=== PATIENT | female | born 1980 | race Caucasian/White ===

== ENCOUNTER 2024-06-04 14:43 | Outpatient (CLI) | payer OTHER, SELFPAY ==
--- NOTE | ~2024-06-04 | XR_ITS ---
XR finger 5th RT min 2V Ordering provider: Melody Dickerson MD History: . S62.636A - Displaced fracture of distal phalanx of right ... . Comparison: June 04, 2024 FINDINGS: BONES: Healing fracture of the distal phalanx of the little finger. JOINT SPACES: Normal. SOFT TISSUES: Normal. IMPRESSION: Fracture at the base of the distal phalanx unchanged from previous examination. Reviewed, dictated and finalized at location A.
--- NOTE | ~2024-06-04 | XR_ITS ---
XR hand RT min 3V Ordering provider: Melody Dickerson MD History: . S62.636A - Displaced fracture of distal phalanx of right ... . Comparison: None. FINDINGS: BONES: Avulsion Fracture at the base of the distal phalanx dorsally JOINT SPACES: Normal. SOFT TISSUES: Soft tissue swelling over the distal interphalangeal joint of the little finger. IMPRESSION: Undisplaced fracture at the base of the distal phalanx of the little finger dorsally. Reviewed, dictated and finalized at location A. IMPRESSION: Undisplaced fracture at the base of the distal phalanx of the little finger preet bowser.
--- OUTSIDE RECORDS SUMMARY | 2024-06-04 16:41 | XMS_ITS | Clinical Summary ---
Author Organization [facility] Address [address], [facility] [address] [place] [address] Phone Care Team Providers Care Envelope Stuffer Name Role Phone Stveen Wilson MD Primary Care Provider + Allergies Active Allergy Reactions Criticality Noted Date Comments Erythromycin Rash 04/07/2016 Medications No known medications Active Problems Problem Noted Date Diagnosed Date Thrombophilia 04/07/2016 Family History Medical History Relation Name Comments No Known Problems Brother Hypertension Father Heart Attack Maternal Grandfather Stroke Maternal Grandmother No Known Problems Mother Cancer Paternal Grandfather Rectal Aneurysm Paternal Grandmother Diabetes Paternal Grandmother Relation Name Status Comments Brother Alive Father Alive Maternal Grandfather Maternal Grandmother Mother Alive Paternal Grandfather Alive Paternal Grandmother Social History Tobacco Use Types Packs/Day Years Used Date Smoking Tobacco: Former Cigarettes 0.5 12 0 03/17/2003 - 03/17/2014 Alcohol Use Standard Drinks/Week Comments Yes 4 (1 standard drink = 0.6 oz pur e alcohol) Comments Unknown Sex and Gender Information Value Date Recorded Sex Assigned at Not on file Legal Sex Female 2:21 PM ANIMAL STUNNER Gender Identity Not on file Sexual Orientation Not on file Last Filed Vital Signs Vital Sign Reading Time Taken Comments Blood Pressure 118/78 04/21/2016 3:55 PM ANIMAL STUNNER Pulse 57 04/21/2016 3:55 PM ANIMAL STUNNER Temperature 37.3 C (99.1 F) 04/21/2016 3:55 PM ANIMAL STUNNER Respiratory Rate - - Oxygen Saturation 98% 04/21/2016 3:55 PM ANIMAL STUNNER Inhaled Oxygen Concentration - - Weight 67.1 kg (148 lb) 04/21/2016 3:55 PM ANIMAL STUNNER Height 170.2 cm (5' 7 ) 04/21/2016 3:55 PM ANIMAL STUNNER Body Mass Index 23.18 04/21/2016 3:55 PM ANIMAL STUNNER Plan of Treatment Health Maintenance Due Date Last Done Comments Hepatitis C Virus (HCV) Screening 1982 TdaP Immunization 1982 Hepatitis B Immunization (1 of 3 - 19+ 3-dose series) 2001 Pap Smear 06/23/2003 Cervical Cancer Screening (CCS) 2012 HPV/Cotest 2012 Discussion re Starting/Frequ ency of Mammograms 2022 Influenza Immunization (#1) 2023 SARS-COV-2 Immunization ( season) 2023 Respiratory Syncytial Virus (RSV) Immunization (Adult) (1 - 1-dose 75+ series) 2057 Meningococcal Immunization (ACWY) Aged Out No longer eligible based on patient's age to complete this topic Pneumococcal Immunization Combined Aged Out No longer eligible based on patient's age to complete this topic Rotavirus Immunization Aged Out No lo nger eligible based on patient's age to complete this topic Insurance Care Teams Envelope Stuffer Relationship Specialty Start Date End Date Steven Wilson MD [address] [facility] [address] [place] [address] PCP - General Family Medicine 03/08/16
--- OUTSIDE RECORDS SUMMARY | 2024-06-04 16:41 | XMS_ITS | Clinical Summary ---
Author Organization [facility] Address [facility] [place] [address] Care Team Providers Care Manager Loss Prevention Name Role Phone Love Figueroa [facility] Primary Care Provider + Allergies Active Allergy Reactions Criticality Noted Date Comments Erythromycin Rash Medium 04/07/2016 Penicillins Hives,Rash Low 10/12/2006 Azithromycin Hives,Rash Low 05/31/2005 Medications IUD'S IU Active multi vitamin/mineral s (THERA-M ENHANCED) tablet Take 1 tablet by mouth daily. Active spironolactone (ALDACTONE) 100 MG tablet Take 1 tablet (100 mg total) by mouth daily. 05/14/2022 Active minoxidil (LONITEN) 2.5 MG tablet Take 0.625 mg by mouth daily. 10/20/2023 Active acyclovir (ZOVIRAX) 400 MG tablet Take 1 tablet (400 mg total) by mouth 2 (two) times daily. 01/17/2024 Active sulfamethoxazol e-trimethoprim (BACTRIM DS) 800-160 MG tabletIndicatio ns:Fall, initial encounter,Finge r pain, right Take 1 tablet by mouth 2 (two) times daily for 7 days. 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 Foot pain 09/06/2013 Encounters Date Type Department Care Team Description 06/04/2024 MyChart Message [facility] [address] [place] [phone] Shreya, [facility] Provider Hand specialist 05/30/2024 Telephone [facility] [place] [address] Florencio Fatima MD Work Comp Injury Management; Referral 05/29/2024 MyChart Message [address] [address] Adina Collins NP Workman's Comp letter for referral 05/24/2024 7:45 AM CDT - 05/24/2024 11:59 PM CDT Hospital Encounter [facility] [address] [place] [address] Adina Collins, HUI Discharge Disposition: Home or Self Care (Routine Discharge) 05/24/2024 7:20 AM CDT Office Visit [address] [address] Adina Collins, HUI Finger pain (Pt here today for right pinky pain.) 05/24/2024 Travel from Last 3 Months Immunizations Immunization Administration Dates Next Due Dtap 11/08/2017 Dtap (Acel-Immune) 11/08/2017 Fluzone 6 Months+ Quad (0.5 mL Prefilled Syringe) 11/05/2019 Influenza (Generic) 11/15/2017,11/15/2017 PFIZER COVID-19 (MARIA CAP), MRNA, LNP-S, PF, 30 MCG/0.3 ML CANELO-SUCROSE, IM 06/09/2021 Td 09/16/2006 Tdap (Boostrix) 09/28/2019 Tdap (Generic) 09/28/2019, 0,11/08/2017,2017,10/19/2017,10/19/2017 Family History Medical History Relation Comments None Brother None Daughter Hypertension Father Heart Attack Maternal Grandfather None Mother Diabetes Paternal Grandmother Cancer Neg Hx Relation Status Comments Brother Alive Daughter Alive Father Alive Maternal Grandfather Alive Mother Alive Paternal Grandmother Alive Social History Tobacco Use Types Packs/Day Years Used Date Smoking Tobacco: Never Smokeless Tobacco: Never Tobacco Cessation:Counseling Given: No Alcohol Use Standard Drinks/Week Comments No 0 (1 standard drink = 0.6 oz pur e alcohol) AUDIT-C Answer Date Recorded Frequency of Alcohol Consumption Never 06/02/2018 Average Number of Drinks Not on file 019 Frequency of Binge Drinking Not on file 05/15 PHQ-2 Answer Date Recorded Patient Health Questionnaire-2 Score 0 10/31/2023 Comments No Sex and Gender Information Value Date Recorded Sex Assigned at Not on file Legal Sex Female 8:14 PM CDT Gender Identity Not on file Sexual Orientation Not on file Last Filed Vital Signs Vital Sign Reading Time Taken Comments Blood Pressure 118/70 05/24/2024 7:22 AM CDT Pulse 83 05/24/2024 7:22 AM CDT Temperature 36.7 C (98.1 F) 05/24/2024 7:22 AM CDT Respiratory Rate 20 05/24/2024 7:22 AM CDT Oxygen Saturation 98% 05/24/2024 7:22 AM CDT Inhaled Oxygen Concentration - - Weight 66.9 kg (147 lb 6.4 oz) 05/24/2024 7:22 A M CDT Height 172.7 cm (5' 8 ) 05/24/2024 7:22 AM CDT Body Mass Index 22.41 05/24/2024 7:22 AM CDT Plan of Treatment Health Maintenance Due Date Last Done Comments Cervical Cancer Screening Pap Smear (Age 30 to 64) Every 3 Years 1982 Hepatitis C 2000 Hepatitis B Vaccines (1 of 3 - 19+ 3-dose series) 2001 Cervical Cancer Screening Pap with HPV Testing (Age 30 to 64) Every 5 Years 04/15/2023 04/14/2018 Cervical Cancer Screening with HPV 04/15/2023 COVID-19 Vaccine ( season) 2023 06/09/2021 Annual Physical 11/30/2023 11/29/2022 PHQ-2 (Physician [place]) 02/15/2024 10/31/2023 Mammogram Screening 02/17/2025 02/17/2023, DTaP, Tdap and Td Vaccines (10 - Td or Tdap) 09/27/2029 09/28/2019, 09/28/2019, 09/28/2019, Additional history exists HPV Vaccines Aged Out No longer eligi ble based on patient's age to complete this topic Meningococcal B Vaccine Aged Out No l onger eligible based on patient's age to complete this topic Meningococcal Vaccine Aged Out No bk cristi eligible based on patient's age to complete this topic Pneumococcal Vaccine: Pediatrics (0 to 5 Years) and At-Risk Patients (6 to 49 Years) Aged Out No longer eligible based on patient's age to complete this topic RSV Immunizations Under 20 Months Aged Out No longer eligible based on patient's age to complete this topic Procedures Procedure Name Priority Date/Time Associated Diagnosis Comments XR FIFTH FINGER RT 3V STAT 05/24/2024 8:00 AM CDT Fall, initial encounter Finger pain, right MG SCREENING W ZIGGY CHRISTIANO DIGI Routine 02/17/2023 5:27 PM ENERGY DERIVATIVES TRADER Encounter for screening mammogram for breast cancer HPV MRNA E6/E7 Routine 04/14/2018 6:00 PM ENERGY DERIVATIVES TRADER from Last 3 Months or Most Recently Relevant to Health Maintenance Results * XR FIFTH FINGER RT 3V (05/24/2024 8:00 AM CDT) Anatomical Region Laterality Modality Hand Radiographic Barbara ging 05/24/2024 8:01 AM CDT Impressions 05/24/2024 8:02 AM CDT IMPRESSION: There is a fracture that is present about the base of the distal phalanx of the fifth digit. This involves proximal articular surface. Referred By: Interpreted By: Joey Sin MD, 05/24/2024 8:01 AM Narrative 05/24/2024 8:02 AM CDT [address] [address] Procedure(s): XR FIFTH FINGER RT 3V Date of service: 05/24/2024 7:48 AM Provided clinical information: 43 years, Female, fall on 05/22/2024, deformity DIP and PIP joints with erythema, swelling, bruising Procedure and materials: 3 views right fifth digit. Comparison studies: None. Findings: DIP joint space narrowing is present. There is a fracture that is present involving the base of the distal phalanx. The fracture involves the proximal articular surface. Moderate fracture diastases is present. Procedure Note Joey Sin MD - 05/24/[address] [address] Procedure(s): XR FIFTH FINGER RT 3V Date of service: 05/24/2024 7:48 AM Provided clinical information: 43 years, Female, fall on 05/22/2024,deformity DIP and PIP joints with erythema, swelling, bruising Procedure and materials: 3 views right fifth digit. Comparison studies: None. Findings: DIP joint space narrowing is present. There is a fracture that is present involving the base of the distalphalanx. The fracture involves the proximal articular surface. Moderatefracture diastases is present. IMPRESSION: There is a fracture that is present about the base of the distal phalanxof the fifth digit. This involves proximal articular surface. Referred By: Interpreted By: Joey Sin MD, 05/24/2024 8:01 AM us Adina Collins SURVEILLANCE DUAL RATE OFFICER GENERAL IMAGING Final Re sult * MG SCREENING W ZIGGY CHRISTIANO DIGI (02/17/2023 5:27 PM ENERGY DERIVATIVES TRADER) Anatomical Region Laterality Modality Breast Bilateral Mammography 02/18/2023 3:24 PM ENERGY DERIVATIVES TRADER Narrative 02/18/2023 3:29 PM ENERGY DERIVATIVES TRADER Examination: Screening bilateral mammogram Exam Date: 02/17/2023 4:19 PM Clinical history: Routine screening. Comparison: 09/25/2019 Technique: Digital screening mammography of both breasts was performed. Breast tomosynthesis acquisitions were obtained and reviewed. This study was read with the assistance of a computer-aided detection system. Tissue density: The breast tissue is extremely dense, which lowers the sensitivity of mammography. Findings: The breast parenchymal pattern is stable bilaterally. Right breast biopsy clip noted. Numerous scattered punctate benign-appearing calcifications bilaterally. There is no suspicious grouping of microcalcifications on either side. No suspicious mass, architectural distortion or skin thickening. IMPRESSION: No suspicious mammographic findings. Recommendation: 1. Routine Screening, Bilateral Assessment: ACR BI-RADS 2 - BENIGN FINDING(S) Ordered By: LOVE FIGUEROA Interpreted By: Juan Calvin MD, 02/18/2023 3:24 PM Love Figueroa SR COMMUNITY MANAGER-BC MAMMO Final Re sult * HPV MRNA E6/E7 (04/14/2018 6:00 PM ENERGY DERIVATIVES TRADER) HPV MRNA E6/E7 Not Detected NOT DETECTED 04/19/2018 6:51 AM ENERGY DERIVATIVES TRADER Outcome Referrals MYRANDA WILKES Comment: This test was performed using the APTIMA(R) HPV Assay([employer]This assay detects E6/E7 viral messenger RNA (mRNA)from 14 high-risk HPV types (16,18,31,33,35,39,45,51,52,56,58,59,66,68).For additional information please refer to:http://education.food.de.[employer]/faq/YYO251t5(This link is being provided for informational/educational purposes only.)The analytical performance characteristics of thisassay have been determined by [place]. The modificationshave not been cleared or approved by the FDA. Thisassay has been validated pursuant to the CLIAregulations and is used for clinical purposes.Test Performed by Navin Montilla,[employer] [facility],[address] [place] [id number] Vidales M.D., Ph.D., Director of [phone], [facility] [id number] FLUID SPECIMEN / Unknown 04/14/2018 6:00 PM ENERGY DERIVATIVES TRADER 04/14/2018 6:00 PM ENERGY DERIVATIVES TRADER us Generic Conversion Md [facility] PATHOLOGY/CYTOLOGY VANNESA TORRES Final Result Performing Organization Address City/State/RUST Co de Phone Number WILLIAM FRANKS [facility] [address] [place], [place] , [place] [phone] from Last 3 Months or Most Recently Relevant to Health Maintenance Insurance [employer] OPEN ACCESS [facility] GENERIC WORKMANS COMP Advance Directives * Full Code (Latest Code Status on File) Date Activated Date Inactivated Comments 11/04/2019 12:06 PM 11/06/2019 1:54 PM * Full Code Date Activated Date Inactivated Comments 11/04/2019 3:21 AM 11/04/2019 12:05 PM * Full Code Date Activated Date Inactivated Comments 11/03/2019 4:41 PM 11/03/2019 7:42 PM Care Teams Manager Loss Prevention Relationship Specialty Start Date End Date Love Figueroa, SR COMMUNITY MANAGER- [address] [address] PCP - General NURSE PRACTITIONER 08/31/21
--- OUTSIDE RECORDS SUMMARY | 2024-06-04 16:41 | XMS_ITS | Encounter Summary ---
Author Organization [facility] Address [address] [place] [address] Care Team Providers Care International Exchange Coordinator Name Role Phone HenryMeeta garciayesika Mcclain [facility] Primary Care Provider + Encounter Details Date Type Department Care Team (Late st Contact Info) Description 07/26/2023 Seguricel Message [address] [address] Vivien Diaz, TALENT DEVELOPMENT MANAGER [address] [place] [address] follow up Social History Tobacco Use Types Packs/Day Years Used Date Smoking Tobacco: Never Smokeless Tobacco: Never Alcohol Use Standard Drinks/Week Comments No 0 (1 standard drink = 0.6 oz pur e alcohol) AUDIT-C Answer Date Recorded Frequency of Alcohol Consumption Never 06/02/2018 Average Number of Drinks Not on file 019 Frequency of Binge Drinking Not on file 05/15 PHQ-2 Answer Date Recorded Patient Health Questionnaire-2 Score 0 04/01/2023 Comments No Sex and Gender Information Value Date Recorded Sex Assigned at Not on file Legal Sex Female 8:14 PM CDT Gender Identity Not on file Sexual Orientation Not on file documented as of this encounter Functional Status * RETIRED Are you deaf or do you have serious difficulty hearing Answer Date of Assessment Author Status No 11/04/2019 5:26 AM CDT Activ e * RETIRED Are you blind or do you have serious difficulty seeing, even when wearing glasses? Answer Date of Assessment Author Status No 11/04/2019 5:26 AM MATTEO Activ e * Do you have serious difficulty walking or climbing stairs? Answer Date of Assessment Author Status No 11/04/2019 5:26 AM Vesta Silva RN A ctive * Do you have difficulty dressing or bathing? Answer Date of Assessment Author Status No 11/04/2019 5:26 AM Vesta Silva RN A ctive * Because of a physical, mental, or emotional condition, do you have difficulty doing errands alone such as visiting a doctor's office or shopping? Answer Date of Assessment Author Status No 11/04/2019 5:26 AM Vesta Silva RN A ctive documented as of this encounter Mental Status * Because of a physical, mental, or emotional condition, do you have serious difficulty concentrating, remembering, or making decisions? Answer Entry Date Author Status No 11/04/2019 5:26 AM Vesta Silva RN A ctive documented in this encounter Plan of Treatment Not on file documented as of this encounter Visit Diagnoses Not on filedocumented in this encounter Care Teams International Exchange Coordinator Relationship Specialty Start Date End Date Love Figueroa, GROUP WORKER- [address] [address] PCP - General NURSE PRACTITIONER 08/31/21 documented as of this encounter
--- OUTSIDE RECORDS SUMMARY | 2024-06-04 16:41 | XMS_ITS | Encounter Summary ---
Author Organization [facility] Address [address] [place] [address] Care Team Providers Care Twisting Frame Fixer Name Role Phone Sin Gorman MD Primary Care Provider + None, Provider Primary Care Provider Love Condon [facility] Primary Care Provider + Encounter Details Date Type Department Care Team (Late st Contact Info) Description 09/06/2012 Abstract [facility] CONVERSION [address] [place] [address] , Generic ConversionMD Social History Tobacco Use Types Packs/Day Years Used Date Smoking Tobacco: Never Assessed Comments Unknown Sex and Gender Information Value Date Recorded Sex Assigned at Not on file Legal Sex Female 8:14 PM CDT Gender Identity Not on file Sexual Orientation Not on file documented as of this encounter Plan of Treatment Not on file documented as of this encounter Visit Diagnoses Not on filedocumented in this encounter Additional Health Concerns Infection Onset Date Last Indicated Resolved Time COVID-19 Rule Out 02/02/2021 02/02/2021 02/02/2021 2:16 PM CONSUMER LENDER documented as of this encounter Care Teams Twisting Frame Fixer Relationship Specialty Start Date End Date Sin Gorman MD [address] [place] [address] PCP - General FAMILY PRACTICE 06/02/18 02/01/21 None, ProviderMD PCP - General 02/02/21 08/30/21 Love Figueroa, [facility]- [address] [place] [address] PCP - General NURSE PRACTITIONER 08/31/21 documented as of this encounter
--- OUTSIDE RECORDS SUMMARY | 2024-06-04 16:41 | XMS_ITS | Encounter Summary ---
Author Organization [facility] Address [address] [place] [address] Care Team Providers Care Transportation Engineering Technician Name Role Phone Sin Gorman MD Primary Care Provider + None, Provider Primary Care Provider Dinorah Love Khan-CHRIS Primary Care Provider + Encounter Details Date Type Department Care Team (Late st Contact Info) Description 11/16/2002 Abstract [facility] Conversion , Generic Conversion, Social History Tobacco Use Types Packs/Day Years [...] Rule Out 02/02/2021 02/02/2021 02/02/2021 2:16 PM REAL ESTATE LOAN OFFICER documented as of this encounter Care Teams Transportation Engineering Technician Relationship Specialty Start Date End Date Sin Gorman MD [address] [address] PCP - General FAMILY PRACTICE 06/02/18 02/01/21 None, ProviderMD PCP - General 02/02/21 08/30/21 Love Figueroa POSTAL SERVICE WINDOW CLERK-BC [address] [place] [address] PCP - General NURSE PRACTITIONER 08/31/21 documented as of this encounter
--- OUTSIDE RECORDS SUMMARY | 2024-06-04 16:41 | XMS_ITS | Encounter Summary ---
Author Organization [facility] Address [address] [place] [address] Care Team Providers Care Fruit Loader Machine Operator Name Role Phone Love Figueroa [facility] Primary Care Provider + Encounter Details Date Type Department Care Team (Late st Contact Info) Description 06/04/2024 Plain Vanilla Message [address] [phone] Shreya, [facility] Provider Hand specialist Social History Tobacco Use Types Packs/Day Years [...] 11/04/2019 5:26 AM CDT Activ e * Do you have serious [...] Author Status No 11/04/2019 5:26 AM Vesta Sivla RN A ctive documented as of this [...] on filedocumented in this encounter Care Teams Fruit Loader Machine Operator Relationship Specialty Start Date End Date Love Figueroa, TRACE EVIDENCE TECHNICIAN- [address] [address] PCP - General NURSE PRACTITIONER 08/31/21 documented as of this encounter
--- OUTSIDE RECORDS SUMMARY | 2024-06-04 16:41 | XMS_ITS | Encounter Summary ---
Author Organization [facility] Address [address] [place] [address] Care Team Providers Care Hospital Coordinator Name Role Phone Love Figueroa [facility] Primary Care Provider + Encounter Details Date Type Department Care Team (Late st Contact Info) Description 05/29/2024 FORVM Message [facility] [address] [place] [address] ClayAdina NP [address] [facility] [address] [place] [address] Workman's Comp letter for referral Social History Tobacco Use Types Packs/Day Years [...] Author Status No 11/04/2019 5:26 AM CDT Vesta Fish RN A ctive * Do you have difficulty dressing or bathing? Answer Date of Assessment Author Status No 11/04/2019 5:26 AM CDT Vesta Fish RN A ctive * Because of a physical, mental, or emotional condition, do you have difficulty doing errands alone such as visiting a doctor's office or shopping? Answer Date of Assessment Author Status No 11/04/2019 5:26 AM CDT Vesta Fish RN A ctive documented as of this encounter Mental Status * Because of a physical, mental, or emotional condition, do you have serious difficulty concentrating, remembering, or making decisions? Answer Entry Date Author Status No 11/04/2019 5:26 AM CDT Vesta Fish RN A ctive documented in this encounter Progress Notes * Radha Morrow - 05/29/2024 1:52 PM CDT I have dropped this back to the internal work queue for Hand Surgery. documented in this encounter Plan of Treatment Not on file documented as of this encounter Visit Diagnoses Not on filedocumented in this encounter Care Teams Hospital Coordinator Relationship Specialty Start Date End Date Love Figueroa, FUNERAL SERVICE MANAGER- [address] [address] PCP - General NURSE PRACTITIONER 08/31/21 documented as of this encounter
--- OUTSIDE RECORDS SUMMARY | 2024-06-04 16:41 | XMS_ITS | Clinical Summary ---
Author Organization [facility] Address [address] [place] [address] Care Team Providers Care Tariff Counsel Name Role Phone Jono Peres MD Primary Care Provider [phone] Source Comments [facility],non-owned Affiliates and Associated Physician Practices is amultiple site organization consisting of ambulatory clinics and hospital sitesin [place], [place], [place] and [place]. This disclosure is being madepursuant to the Care Everywhere program and may not contain all information available regarding this patient. Last updated 17.[facility] Allergies Active Allergy Reactions Criticality Noted Date Comments Erythromycin Rash Medium 12/30/2017 Penicillins Unknown 06/27/2019 Medications * Be aware that medications may not be up to date on this document. Alwaysverify current medications with the patient. Uwdizlyk-Ynj-Jr -FA ( VITAMIN WITH IRON) tablet Take 1 tablet by mouth once daily Active ibuprofen (MOTRIN) 600 MG tablet Take 1 tablet by mouth every 6 hours as needed for Pain 60 tablet 2 8 Active docusate sodium (COLACE) 100 MG capsule Take 1 capsule by mouth 2 times daily 60 capsule 2 8 Active polyethylene glycol 3350 (MIRALAX) powder Take 17 g by mouth once daily 500 g 1 8 Active ferrous sulfate 325 (65 FE) MG tablet Take 1 tablet by mouth every Tuesday, Tuesday & Tuesday 100 tablet 1 8 Active plus iron (NATATAB) 29-1 MG tablet Take 1 tablet by mouth once daily 90 tablet 5 8 Active Active Problems Problem Noted Date Diagnosed Date Second 06/27/2019 Encounter for ultrasound 06/27/2019 Hx of section 06/27/2019 Hx of preeclampsia, prior pr egnancy, currently , unspecified trimester 06/27/2019 History of hemorrhage 06/27/2019 Resolved Problems Problem Noted Date Diagnosed Date Resolved Date hemorrhage 12/30/20172019 Preeclampsia 06/27/2019 Social History Tobacco Use Types Packs/Day Years Used Date Smoking Tobacco: Never Smokeless Tobacco: Never Tobacco Cessation:Counseling Given: Yes Comments No Sex and Gender Information Value Date Recorded Sex Assigned at Not on file Legal Sex Female 9:55 AM [employer]ATING SYSTEM [employer] Gender Identity Not on file Sexual Orientation Not on file Last Filed Vital Signs Vital Sign Reading Time Taken Comments Blood Pressure 117/75 01/01/2018 7:36 AM [employer]PERATING SYSTEM PROGRAMMER Pulse 61 01/01/2018 7:36 AM [employer]PERATING SYSTEM PROGRAMMER Temperature 36.6 C (97.8 F) 01/01/2018 7:36 AM [employer]PERATING SYSTEM PROGRAMMER Respiratory Rate 20 01/01/2018 7:36 AM [employer]PERATING SYSTEM PROGRAMMER Oxygen Saturation 97% 01/01/2018 7:36 AM [employer]PERATING SYSTEM PROGRAMMER Inhaled Oxygen Concentration - - Weight 73.5 kg (162 lb) 12/30/2017 10:10 AM [employer]PERATING SYSTEM PROGRAMMER Height 170.2 cm (5' 7 ) 12/30/2017 10:10 AM [employer]PERATING SYSTEM PROGRAMMER Body Mass Index 25.37 12/30/2017 10:10 AM [employer]PERATING SYSTEM PROGRAMMER Plan of Treatment Health Maintenance Due Date Last Done Comments LIPID TESTING 1982 PAP SMEAR 1982 HIV SCREENING 1997 HEPATITIS C SCREENING 06/17/2000 DTAP/TDAP/TD VACCINES (1 - Tdap) 2001 HEPATITIS B VACCINE (1 of 3 - 19+ 3-dose series) 2001 COVID-19 VACCINE (2 - 2023-2 5 season) 2023 06/09/2021 DEPRESSION SCREENING 02/15/2024 INFLUENZA VACCINE (Season Ended) 2024 11/05/2019, 11/15/2017 MAMMOGRAM 02/17/2025 02/17/2023, 02/17/2023 ZOSTER VACCINE (1 of 2) 2032 HIB VACCINE Aged Out No longer eligi ble based on patient's age to complete this topic HPV VACCINE Aged Out No longer eligi ble based on patient's age to complete this topic MENINGOCOCCAL (Group B) VACCINE SHARED DECISION-MAKING Aged Out No longer eligible based on patient's age to complete this topic MENINGOCOCCAL GROUPS A/C/Y/W VACCINE Aged Out No longer eligible b ased on patient's age to complete this topic PNEUMOCOCCAL VACCINE Aged Out No long er eligible based on patient's age to complete this topic [facility] * Guarantor: [id number] [employer] Account Type Relation to Patient Date of Phone Billing Address Workers Comp Employer Advance Directives * Full Code (Latest Code Status on File) Date Activated Date Inactivated Comments 12/30/2017 10:15 AM 01/01/2018 4:42 PM Care Teams Tariff Counsel Relationship Specialty Start Date End Date Jono Peres MD [address] [place] [id number] PCP - General Family Medicine 06/26/19
== END 2024-06-04 14:44 | disposition home or self-care (01) ==
PROVIDERS: Visit Provider Plastic Surgery
DX: S62.636D Displaced fracture of distal phalanx of right little finger, subsequent encounter for fracture with routine healing (principal); X58.XXXD Exposure to other specified factors, subsequent encounter
CPT/HCPCS: 73130; 73140